=== PATIENT | male | born 1990 | race Caucasian/White ===

== ENCOUNTER 2018-11-07 14:17 | Emergency (ER) | payer OTHER ==
[~2018-11-07] VITALS: Ht 172.7 cm; Wt 109.1 kg
[2018-11-07 14:44] VITALS: BP 134/105
[2018-11-07] MEDS ORDERED: LIDOcaine 1% w/epiNEPHrine 1:200,000 30ml vial IM ONE (15:15)
[2018-11-07] MEDS ORDERED: TETanus/Pertussis (Acell)/Diphther VAC/PF (Tdap-Adult) 0.5ml syringe IM ONE (15:15)
== END 2018-11-07 16:46 | disposition home or self-care (01) ==
LOC: EDBD 14:18 → ER 14:18
DX: S01.312A Laceration without foreign body of left ear, initial encounter (principal); Z59.0 Homelessness; F17.200 Nicotine dependence, unspecified, uncomplicated; W25.XXXA Contact with sharp glass, initial encounter; Y93.89 Activity, other specified; Y92.89 Other specified places as the place of occurrence of the external cause; Y99.9 Unspecified external cause status
CPT/HCPCS: 12013; 90471; 90715; 99283; J3490

== ENCOUNTER 2018-11-13 14:15 | Emergency (ER) | payer OTHER ==
[~2018-11-13] VITALS: Ht 172.7 cm; Wt 109.0 kg
[2018-11-13 14:26] VITALS: BP 140/80
== END 2018-11-13 14:41 | disposition home or self-care (01) ==
LOC: ER 14:16
DX: S01.312D Laceration without foreign body of left ear, subsequent encounter (principal); Z59.0 Homelessness; W22.8XXD Striking against or struck by other objects, subsequent encounter
CPT/HCPCS: 99282